=== PATIENT | female | born 1960 | race Caucasian/White ===

== ENCOUNTER → 2017-05-13 | Outpatient (CLI) | payer OTHER ==
[~2017-05-13] MED LIST: BUPR-83 PO; CARI350T28 PO; CONJ.6255 PO; GABA800T PO; OMEG10007 PO; PYRI100T4 PO; TRAZ50TA35 PO; VITAMIN B12 INJ; [UNRECOGNIZED DRUG - OTHER] PO; meloxicam PO
--- NOTE | 2017-05-13 14:26 | DIAGNOSTIC IMAGING REPORT ---
THORACIC SPINE 3 VIEWS ROUTINE CLINICAL HISTORY: 57 years-old Female presenting with THORACIC BACK PAIN. TECHNIQUE: 3 views of the thoracic spine were obtained. COMPARISON: None. FINDINGS: Mild dextrocurvature of the thoracic spine centered at T8-9. Anterior cervical fusion hardware from C5 to C7. Vertebral bodies maintain grossly normal height and alignment throughout the thoracic spine. Normal thoracic kyphosis apart from mild scoliosis. Mild degenerative change in the lower thoracic spine with disc osteophyte complex. No gross evidence of subluxation or compression deformity. Cholecystectomy clips. IMPRESSION: 1. Mild dextroscoliosis of the thoracic spine and mild degenerative changes of the lower thoracic spine. 2. No radiographic evidence of acute osseous injury of the thoracic spine. 3. Postsurgical changes of anterior cervical fusion in the lower cervical spine. Electronically signed by: Alexis Nielson M.D. 05/13/2017 2:24 PM Dictated Date/Time: 05/13/2017 2:21 PM
== END | disposition home or self-care (01) ==
LOC: C.RADBC 13:48
PROVIDERS: ATTEND Physician Assistant
DX: M54.6 Pain in thoracic spine (principal)